=== PATIENT | female | born 1975 | race Native Hawaiian/Other Pacific Islander ===

== ENCOUNTER 2017-06-19 12:45 | Outpatient (CLI) | payer OTHER ==
[2017-06-19 13:38] LABS: PLATELET COUNT 266 K/uL (152-353)
[2017-06-19 13:58] LABS: POTASSIUM 4.2 mmol/L (3.6-5.2); SODIUM 135 mmol/L (136-145)
== END 2017-06-19 13:45 | disposition home or self-care (01) ==
LOC: LAB 12:45
PROVIDERS: Family Medicine
DX: E66.3 Overweight (principal); Z83.3 Family history of diabetes mellitus; Z80.0 Family history of malignant neoplasm of digestive organs; E78.00 Pure hypercholesterolemia, unspecified; R79.89 Other specified abnormal findings of blood chemistry
CPT/HCPCS: 80053; 80061; 81000; 82306; 83036; 83735; 84439; 84443; 85027

== ENCOUNTER 2017-06-25 09:29 | Outpatient (CLI) | payer OTHER | END 2017-06-25 19:11 | disposition home or self-care (01) | LOC: MAMMO 09:29 | DX: Z12.31 Encounter for screening mammogram for malignant neoplasm of breast (principal) ==

== ENCOUNTER 2017-07-15 11:52 | Day surgery (SDC) | payer OTHER ==
[~2017-07-15] VITALS: Ht 30.5 cm; Wt 0.5 kg
== END 2017-07-15 17:50 | disposition home or self-care (01) ==
LOC: OR 11:52
PROC: 0DBL8ZZ Excision of Transverse Colon, Via Natural or Artificial Opening Endoscopic (ICD-10-PCS; principal; 2017-07-15)
PROC: 0DBM8ZZ Excision of Descending Colon, Via Natural or Artificial Opening Endoscopic (ICD-10-PCS; 2017-07-15)
PROC: 0DBN8ZZ Excision of Sigmoid Colon, Via Natural or Artificial Opening Endoscopic (ICD-10-PCS; 2017-07-15)
DX: K63.5 Polyp of colon (principal); D12.3 Benign neoplasm of transverse colon; D12.4 Benign neoplasm of descending colon; D12.5 Benign neoplasm of sigmoid colon; K57.30 Diverticulosis of large intestine without perforation or abscess without bleeding; K64.8 Other hemorrhoids; Z80.0 Family history of malignant neoplasm of digestive organs; Z12.11 Encounter for screening for malignant neoplasm of colon
CPT/HCPCS: J2001; J2250; J2704; J3010

== ENCOUNTER 2018-05-17 10:57 | Outpatient (CLI) | payer OTHER | END 2018-05-17 19:56 | disposition home or self-care (01) | LOC: MAMMO 10:57 | DX: N63.0 Unspecified lump in unspecified breast (principal) ==

== ENCOUNTER 2018-11-30 11:16 | Outpatient (CLI) | payer OTHER | END 2018-11-30 22:47 | disposition home or self-care (01) | LOC: RAD 11:16 | DX: M25.521 Pain in right elbow (principal) ==

== ENCOUNTER 2020-02-23 10:04 | Outpatient (CLI) | payer OTHER | END 2020-02-23 21:51 | disposition home or self-care (01) | LOC: MRI 10:04 | DX: M25.521 Pain in right elbow (principal); M77.11 Lateral epicondylitis, right elbow ==

== ENCOUNTER 2021-06-12 10:42 | Outpatient (CLI) | payer OTHER | END 2021-06-12 19:18 | disposition home or self-care (01) | LOC: MAMMO 10:42 | PROVIDERS: ATTEND Nurse Practitioner Family | DX: Z12.31 Encounter for screening mammogram for malignant neoplasm of breast (principal) ==

== ENCOUNTER 2022-10-09 09:47 | Outpatient (CLI) | payer OTHER | END 2022-10-09 22:26 | disposition home or self-care (01) | LOC: RAD 09:47 | PROVIDERS: ATTEND Nurse Practitioner Family | DX: Z13.820 Encounter for screening for osteoporosis (principal); Z82.62 Family history of osteoporosis ==